=== PATIENT | female | born 1995 | race Caucasian/White ===

== ENCOUNTER 2020-01-29 14:18 | Emergency (ER) | payer OTHER ==
[~2020-01-29] VITALS: Ht 149.9 cm; Wt 66.2 kg
[~2020-01-29 14:18] MED LIST: AIRBORNE EFFER1 EACH PO; AUGMENTIN 875-1 EACH PO; CARAFATE 1 GM TA1 G1 PO; FLEXERIL PO; FLOVENT HFA 2220 MCG INH; GENTAMICIN SU3 MG/ML OPHTHALMIC; IBUPROFEN 600600 M1 PO; IBUPROFEN 800800 MG PO; MICROGESTIN FE1 EACH PO; MOBIC15 MG PO; MUPIROCIN22 GM TOP; NORCO 5-325 TA1 EACH PO; PREDNISONE 10 M10 M1; PREDNISONE 20 M20 M1 PO; PREDNISONE 20 M20 MG PO; PREDNISONE50 MG PO; PROAIR HFA8.5 GM IH; PROVENTIL HFA6.7 G1 INH; RANITIDINE 150150 M1 PO; SYMBICORT160 MCG/4. INH; TRINESSA1 EACH PO; ULTRAM 50MG TAB50 MG PO; VALIUM5 MG PO; VALTREX1000 MG PO; XANAX 0.25 MG0.25 MG PO; ZIPRASIDONE HCL20 M2 PO; ZOFRAN ODT4 MG PO; ZOLOFT25 MG PO; ZPAK PO
[2020-01-29] MEDS ORDERED: MINIPRESS2 MG PO (14:28)
[2020-01-29] MEDS ORDERED: JUNEL FE 1.5-31 EACH PO (14:29)
[2020-01-29] MEDS ORDERED: NEXPLANON68 MG SUBQ (14:29)
[2020-01-29] MEDS ORDERED: SINGULAIR 10 MG10 MG PO (14:29)
[2020-01-29] MEDS ORDERED: HYDROXYZINE HCL25 M2 PO (14:29)
[2020-01-29] MEDS ORDERED: CYCLOBENZAPRINE5 MG PO (16:58)
[2020-01-29] MEDS ORDERED: NORCO 5-325 TA1 EAC1 PO (16:58)
[2020-01-29] MEDS ORDERED: IBUPROFEN 800800 M1 PO (16:58)
[2020-01-29 17:13] VITALS: BP 118/92
== END 2020-01-29 17:13 | disposition home or self-care (01) ==
LOC: ER 14:18
DX: S16.1XXA Strain of muscle, fascia and tendon at neck level, initial encounter (principal); M25.512 Pain in left shoulder; M25.562 Pain in left knee; R11.0 Nausea; J45.909 Unspecified asthma, uncomplicated; Z79.899 Other long term (current) drug therapy; Z88.1 Allergy status to other antibiotic agents; V43.52XA Car driver injured in collision with other type car in traffic accident, initial encounter; Y93.89 Activity, other specified; Y92.89 Other specified places as the place of occurrence of the external cause; Y99.8 Other external cause status